=== PATIENT | male | born 1975 | race Caucasian/White ===

== ENCOUNTER 2017-07-11 11:34 | Emergency (ER) | payer OTHER, MEDICAID ==
[2017-07-11] MEDS ORDERED: levETIRAcetam 1,000 MG in NS 100 ML IV ONE (12:25)
[2017-07-11] MEDS ORDERED: NS 1,000 ML IV ONE (12:35)
--- NOTE | 2017-07-11 12:37 | EDPHY ---
H & P Stated Complaint: Seizure last night and still feels "confused and shakey". HPI/ROS: CHIEF COMPLAINT: Seizure, right foot pain HISTORY OF PRESENT ILLNESS: Patient complains of seizure last night. He does not recall the exact events but feels as though he has seizure. He feels sore all over and has right foot pain. He does not recall the exact details of the event. He woke this morning confused about where he was. He has recently traveled from [place] but does not recall any of the exact events. He does remember having a seizure disorder but does not remember the last time he took his Keppra. He says that he does not like the way Keppra makes it feel, but he does not recall why. He can provide very little useful information for history of present illness. He denies chest pain or back pain. He denies abdominal complaints. He does have a mild to moderate right foot pain over the dorsum. Nausea but no vomiting. No other associated complaints or modifying factors. Currently homeless and has no physician here yet REVIEW OF SYSTEMS: Ten systems reviewed and are negative unless otherwise noted in the HPI PAST MEDICAL HISTORY: Seizure disorder noncompliance with medication PAST SURGICAL HISTORY: None SOCIAL HISTORY: Tobacco user. Denies alcohol. Occasional marijuana use. Currently homeless FAMILY HISTORY: Noncontributory EXAMINATION General Appearance: Alert, no distress, unkempt Head: normocephalic, atraumatic Eyes: Pupils equal and round, no conjunctival pallor or injection. EOMs intact. No nystagmus or dysconjugate gaze ENT, Mouth: Mucous membranes moist. Airway patent Neck: Normal inspection, supple, non-tender Respiratory: Lungs are clear to auscultation. No wheezing, rhonchi or crackles Cardiovascular: Regular rate and rhythm. No murmur Gastrointestinal: Abdomen is soft and nontender Back: non-tender, no bony abnormalities Neurological: GCS 14. Alert to person and place. Disoriented to time. nonfocal, strength is symmetric in all 4 limbs. No pronator drift. No dysmetria. Skin: Warm and dry, no rash. No petechia or purpura Extremities: Nontender, no pedal edema Psychiatric: Mood and affect normal DIFFERENTIAL DIAGNOSES: Including but not limited to seizure, closed head injury, foot sprain, foot fracture, dehydration, substance abuse MDM: 12:35 p.m. Suspected seizure in a patient with known seizure disorder. He is postictal. He is in no acute distress. He does have right foot pain. Vital signs are stable. He exhibits no seizure-like activity at this time. I have ordered laboratory studies, IV fluid, IV Keppra. Case management has been consulted. 1:15 p.m. X-ray as read by me as no acute fracture dislocation. Laboratory studies are negative for any acute findings. 2:00 p.m. Patient re-evaluated. He has had no seizure-like activity here. Prolactin is negative as are the remainder with laboratory studies. I do not have a clear etiology of his scenario, but this still may have been a seizure as this occurred yesterday in the prolactin could be negative today. He is awake and alert no acute distress at this time. He does have a likely foot sprain without evidence of fracture, thus he is in a Arturo boot and I have prescribed ibuprofen for his pain. Although he was confused regarding the earlier, he now knows that this 2017 and has a GCS of 15. He is ambulatory with a Arturo boot. He has an appointment on Sunday at [facility] that was made dependency case manager. He will keep this. He is asking for Ativan for anxiety, and I have informed him that I am uncomfortable prescribing this for him. I will prescribe him hydroxyzine in the interim. He will return to the ER for any return of seizure- like activity. Patient is comfortable this plan discharged home stable condition Source: Patient Exam Limitations: Other (Postictal) - Personal History Current Tetanus Diphtheria and Acellular Pertussis (TDAP): Yes - Medical/Surgical History Hx Asthma: No Hx Chronic Respiratory Disease: No Hx Diabetes: No Hx Cardiac Disease: No Hx Renal Disease: No Hx Cirrhosis: No Hx Alcoholism: No Hx HIV/AIDS: No Hx Splenectomy or Spleen Trauma: No Other PMH: Seizures. - Social History Smoking Status: Heavy smoker Constitutional: Initial Vital Signs Temperature (C) 97.7 F 07/11/17 11:34 Heart Rate 80 07/11/17 11:34 Respiratory Rate 16 07/11/17 11:34 Blood Pressure 136/66 H 07/11/17 11:34 O2 Sat (%) 99 07/11/17 11:34 O2 Delivery Mode Room Air Allergies/Adverse Reactions: No Known Allergies Allergy (Unverified 07/11/17 11:39) Home Medications: Medication Instructions Recorded Ibuprofen 600 mg PO Q8 PRN #15 tablet 07/11/17 hydrOXYzine HCL [Hydroxyzine HCl] 1 - 2 tab PO Q6-8PRN PRN #15 tablet 07/11/17 Medical Decision Making - Data Points Laboratory Results: Laboratory Results 07/11/17 12:45 07/11/17 12:45 07/11/17 07/11/17 07/11/17 12:45 12:45 12:45 WBC RBC Hgb Hct MCV MCH MCHC RDW Plt Count MPV Neut % (Auto) Lymph % (Auto) [place] % (Auto) Eos % (Auto) Baso % (Auto) Nucleat RBC Rel Count Absolute Neuts (auto) Absolute Lymphs (auto) Absolute Monos (auto) Absolute Eos (auto) Absolute Basos (auto) Absolute Nucleated RBC Immature Gran % Immature Gran # Sodium 141 mEq/L mEq/L (134-144) Potassium 4.1 mEq/L mEq/L (3.5-5.2) Chloride 106 mEq/L mEq/L (97-110) Carbon Dioxide 23 mEq/l mEq/l (22-31) Anion Gap 12 mEq/L mEq/L (8-16) BUN 13 mg/dL mg/dL (7-23) Creatinine 0.7 mg/dL mg/dL (0.7-1.3) Estimated GFR > 60 Glucose 89 mg/dL mg/dL (70-100) Calcium 10.1 mg/dL mg/dL (8.5-10.4) Creatine Kinase 62 IU/L IU/L (0-224) Prolactin 10.5 ng/mL ng/mL (3.7-17.9) Urine Color PALE YELLOW Urine Appearance CLEAR Urine pH 7.0 (5.0-7.5) Ur Specific [place] 1.003 (1.002-1.030) Urine Protein NEGATIVE (NEGATIVE) Urine Ketones NEGATIVE (NEGATIVE) Urine Blood NEGATIVE (NEGATIVE) Urine Nitrate NEGATIVE (NEGATIVE) Urine Bilirubin NEGATIVE (NEGATIVE) Urine Urobilinogen NEGATIVE EU EU (0.2-1.0) Ur Leukocyte Esterase NEGATIVE (NEGATIVE) Urine RBC 1-3 /hpf /hpf (0-3) Urine WBC 1-3 /hpf /hpf (0-3) Ur Epithelial Cells NONE SEEN /lpf /lpf (NONE-1+) Urine Glucose NEGATIVE (NEGATIVE) Urine Opiates Screen NEGATIVE (NEGATIVE) Urine Barbiturates NEGATIVE (NEGATIVE) Levetiracetam Pending Ur Phencyclidine Scrn NEGATIVE (NEGATIVE) Ur Amphetamine Screen NEGATIVE (NEGATIVE) U Benzodiazepines Scrn NEGATIVE (NEGATIVE) Urine Cocaine Screen NEGATIVE (NEGATIVE) U Marijuana (THC) Screen NON-NEGATIVE H (NEGATIVE) 07/11/17 12:45 WBC 12.62 10^3/uL H 10^3/uL (3.80-9.50) RBC 4.65 10^6/uL 10^6/uL (4.40-6.38) Hgb 14.2 g/dL g/dL (13.7-17.5) Hct 41.5 % % (40.0-51.0) MCV 89.2 fL fL (81.5-99.8) MCH 30.5 pg pg (27.9-34.1) MCHC 34.2 g/dL g/dL (32.4-36.7) RDW 14.7 % % (11.5-15.2) Plt Count 280 10^3/uL 10^3/uL (150-400) MPV 9.8 fL fL (8.7-11.7) Neut % (Auto) 63.7 % % (39.3-74.2) Lymph % (Auto) 29.2 % % (15.0-45.0) [place] % (Auto) 5.3 % % (4.5-13.0) Eos % (Auto) 1.2 % % (0.6-7.6) Baso % (Auto) 0.3 % % (0.3-1.7) Nucleat RBC Rel Count 0.0 % % (0.0-0.2) Absolute Neuts (auto) 8.04 10^3/uL H 10^3/uL (1.70-6.50) Absolute Lymphs (auto) 3.68 10^3/uL H 10^3/uL (1.00-3.00) Absolute Monos (auto) 0.67 10^3/uL 10^3/uL (0.30-0.80) Absolute Eos (auto) 0.15 10^3/uL 10^3/uL (0.03-0.40) Absolute Basos (auto) 0.04 10^3/uL 10^3/uL (0.02-0.10) Absolute Nucleated RBC 0.00 10^3/uL 10^3/uL (0-0.01) Immature Gran % 0.3 % % (0.0-1.1) Immature Gran # 0.04 10^3/uL 10^3/uL (0.00-0.10) Sodium Potassium Chloride Carbon Dioxide Anion Gap BUN Creatinine Estimated GFR Glucose Calcium Creatine Kinase Prolactin Urine Color Urine Appearance Urine pH Ur Specific [place] Urine Protein Urine Ketones Urine Blood Urine Nitrate Urine Bilirubin Urine Urobilinogen Ur Leukocyte Esterase Urine RBC Urine WBC Ur Epithelial Cells Urine Glucose Urine Opiates Screen Urine Barbiturates Levetiracetam Ur Phencyclidine Scrn Ur Amphetamine Screen U Benzodiazepines Scrn Urine Cocaine Screen U Marijuana (THC) Screen Medications Given: Discontinued Medications Levetiracetam 1,000 mg/ Sodium (Chloride) 110 mls @ 440 mls/hr IV EDNOW ONE Stop: 07/11/17 12:39 Last Admin: 07/11/17 13:13 Dose: 110 mls Sodium Chloride (Ns) 1,000 mls @ 0 mls/hr IV EDNOW ONE; Wide Open PRN Reason: Protocol Stop: 07/11/17 12:36 Last Admin: 07/11/17 13:13 Dose: 1,000 mls Departure - Departure Disposition: Home, Routine, Self-Care Clinical Impression: Seizure disorder Sprain of foot, right Qualifiers: Encounter type: initial encounter Qualified Code(s): S93.601A - Unspecified sprain of right foot, initial encounter Condition: Good Instructions: Foot Sprain (ED), Recurrent Seizures in Adults (ED) Additional Instructions: Case Management: You have an appointment at [facility] on July 13 @ 10: 30 AM. The address and contact information: [address] [place] [id number] Please report to the [facility] when you arrive. Your appointment is scheduled with PA Caraballo PLEASE CALL SOON POSSIBLE BEFORE YOUR APPOINTMENT TIME IF YOU NEED TO RESCHEDULE OR CANCEL You have also received information re homeless services in the area, including community meal times/locations, [facility], and the "Path to Home" program. Please follow the guides on your handouts for times, locations, etc. Referrals: NONE *PRIMARY CARE P,. [Primary Care Provider] - As per Instructions Harshil Slaughter MD [Medical Doctor] - As per Instructions [facility],. [Clinic] - As per Instructions Prescriptions: hydrOXYzine HCL [Hydroxyzine HCl] 1 - 2 tab PO Q6-8PRN PRN #15 tablet PRN Reason: Anxiety Ibuprofen 600 mg PO Q8 PRN #15 tablet PRN Reason: Pain, Mild
[2017-07-11 12:51] LABS: % IMMATURE GRANULYOCYTES 0.3 % (0.0-1.1); ABSOLUTE IMMATURE GRANULOCYTES 0.04 10^3/uL (0.00-0.10); ADD DIFF? NO; ADD MORPH? NO; ADD SCAN? NO; ATYPICAL LYMPHOCYTE FLAG 10 (0-99); FRAGMENT RBC FLAG 0 (0-99); HEMATOCRIT 41.5 % (40.0-51.0); HEMOGLOBIN 14.2 g/dL (13.7-17.5); LEFT SHIFT FLG 0 (0-99); LIPEMIA HEMOLYSIS FLAG 90 (0-99); MEAN CELL HEMOGLOBIN 30.5 pg (27.9-34.1); MEAN CELL HEMOGLOBIN CONCENTR. 34.2 g/dL (32.4-36.7); MEAN CELL VOLUME 89.2 fL (81.5-99.8); MEAN PLATELET VOLUME 9.8 fL (8.7-11.7); PLATELET CLUMPS FLAG 0 (0-99); PLATELET COUNT 280 10^3/uL (150-400); RED BLOOD CELL COUNT 4.65 10^6/uL (4.40-6.38); RED CELL DISTRIBUTION WIDTH 14.7 % (11.5-15.2)
[2017-07-11 12:56] LABS: COLOR PALE YELLOW; LEUKOCYTE ESTERASE,URINE NEGATIVE (NEGATIVE); NITRITE,URINE NEGATIVE (NEGATIVE)
--- NOTE | 2017-07-11 12:58 | CPEKG ---
Heart Rate: 71 RR Interval: 845 P-R Interval: 156 QRSD Interval: 92 QT Interval: 384 QTC Interval: 418 P [place]: 52 QRS [place]: 77 T Wave [place]: 64 EKG Severity - NORMAL ECG - EKG Impression: SINUS RHYTHM EKG Impression: ST ELEV, PROBABLE NORMAL EARLY REPOL PATTERN Electronically Signed By: Rosana Watts 11-Jul-2017 14:25:29
[2017-07-11 13:14] LABS: ANION GAP 12 mEq/L (8-16); CALCIUM 10.1 mg/dL (8.5-10.4); CARBON DIOXIDE 23 mEq/l (22-31); CHLORIDE 106 mEq/L (97-110); CREATININE 0.7 mg/dL (0.7-1.3); GLOMERULAR FILTRATION RATE > 60; GLUCOSE 89 mg/dL (70-100); POTASSIUM 4.1 mEq/L (3.5-5.2); SODIUM 141 mEq/L (134-144)
[2017-07-11 13:29] LABS: PROLACTIN 10.5 ng/mL (3.7-17.9)
[2017-07-11 14:20] VITALS: BP 124/74; PULSE 76; RESP 18; TEMP 98.4; O2SAT 94
== END 2017-07-11 14:20 | disposition home or self-care (01) ==
DX: S93.601A Unspecified sprain of right foot, initial encounter (principal); G40.909 Epilepsy, unspecified, not intractable, without status epilepticus; F17.200 Nicotine dependence, unspecified, uncomplicated; E86.9 Volume depletion, unspecified; X58.XXXA Exposure to other specified factors, initial encounter
CPT/HCPCS: 73630; 93005; 96361; 96365; 99285; J1953; L4386; 80177-90; 80305